=== PATIENT | female | born 1995 | race Caucasian/White ===

== ENCOUNTER 2017-01-15 01:10 | Emergency (ER) | payer MEDICAID ==
[~2017-01-15] VITALS: Ht 172.7 cm; Wt 80.9 kg
[~2017-01-15 01:10] MED LIST: AMOXIL500 M1 PO; BACTRIM DS 8001 TAB PO; BACTROBAN CR, 115 GM EX; BACTROBAN2% TP; CONCERTA36 MG; CONCERTA36 MG PO; DICLOFENAC 50MG50 MG PO; KEFLEX 250250 MG/5 M PO; KEFLEX 500MG.500 MG PO; KEFLEX500 M1 PO; NAPROSYN 500MG500 MG PO; PRENATAL PLUS1 TA1 PO; PRILOSEC40 MG PO; PROVENTIL0.09 MG/A1 INH; SEPTRA DS 800 M1 TAB PO; TESSALON PERLE100 MG PO; TYLENOL W/CODEI1 TAB PO
[2017-01-15] MEDS ORDERED: NOMEDS XX (01:32)
--- NOTE | 2017-01-15 02:08 | Emergency Room Report ---
History of Present Illness Time Seen by MD Munoz Presenting Problem in Triage Pt arrived:Walked Presenting Problem:COUGH WITH CONGESTION, EAR ACHE IN BOTH EARS, INTERMITTENTLY. 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 N Clinical Suspician of Infection? N Mental Status: 1 - Regular (Normal Baseline) Sepsis Risk:Possible Sepsis Risk Have you (or family members/close friends) recently traveled outside the [place]? N If Yes, where/when: Have you had exposure to infectious disease within the past month? N TB? Other? Specify: Comment Mother is being seen along with her 7-month-old child both of them having upper respiratory infection symptoms. Both of them got sick 2 days ago. Mother complains of sinus drainage and congestion, earaches, cough. She says the day before yesterday she lifted her throat and there were "pus spots", but when she looked at it today they were gone. No fever. She says "it's more sinus". Her child has otitis media on exam. ALLERGIES Coded Allergies: No Known Drug Allergies (NKDA) (05/23/16) Home Medications Reported Medications No Home Medications (NO HOME MEDICATIONS) 1 EACH XX ONCE MULTIVIT-MIN W/FE-FA ( Multivitamin Tablet) 1 TAB PO DAILY History Medical History General CAD? No Angina: No [place]: No Hypertension? No Hyperlipidemia? No CHF? No COPD? No Asthma? Yes Anemia? No Hernia? No Thyroid Problems? No Hypothyroidism? No CVA? No Seizures? No Diabetes? No End Stage Renal Disease? No UTI? No Stones? No GB Disease: No Nephritic Syndrome? No Asplenia? No Hepatitis? No Sickle Cell Disease? No Arthritis? No Cataracts? No Glaucoma? No MRSA? Yes TB? No Cancer? 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 Respiratory cough Physical Exam Vital Signs Vital Signs Date Time Temp Pulse Resp B/P Pulse O2 O2 Flow FiO2 Ox Delivery Rate 01/15 0124 97.9 100 20 154/79 98 General Appearance no apparent distress Eye Exam - bilateral eye normal exam, bilateral eye PERRL, bilateral eye EOMI Ear, Nose, Throat tympanic membranes normal., throat normal Neck normal inspection, non-tender, supple, full range of motion Respiratory Status Yes: trachea midline, chest symmetrical, productive cough. No: respiratory distress. Lung Sounds bilateral: normal breath sounds, lungs clear. Cardiovascular normal exam, regular rate/rhythm, no peripheral edema, no gallop, no JVD, no murmur, no rub, normal peripheral pulses Extremities normal inspection Neurologic alert, oriented x 3 Mental status normal mood/affect Skin intact, normal color, warm/dry Lymphatic no adenopathy Medical Decision Making LABS/Meds/Orders Pt receiving controlled substance in ED? No Results/Orders Current Medication Orders Sig/Neeru Start time Last Medication Dose Route Stop Time Status Admin Amoxicillin 500 MG ONCE ONE 01/15 245 DC 01/15 PO 01/15 246 0241 Amoxicillin 0 .STK-MED ONE 01/15 241 DC PO Departure Departure Disposition DC Home or Self Care(routine) Clinical Impression Primary Impression: Upper respiratory infection Qualifiers: URI type: unspecified viral URI Qualified Code: J06.9 - Acute upper respiratory infection, unspecified Secondary Impressions: Otalgia Qualifiers: Laterality: bilateral Qualified Code: H92.03 - Otalgia, bilateral Condition STABLE Referrals Isis DELGADO,Xavi Beaver (Family) Patient Instructions DI for Viral Upper Respiratory Infection -- Adult Additional Instructions Additional instructions for UPPER RESPIRATORY INFECTION: See your physician as soon as possible for further evaluation. Return immediately if you have an uncontrollable fever greater than 104 degrees, difficulty breathing or shortness of breath, persistent vomiting, or inability to swallow. Prescriptions Current Visit Scripts Amoxicillin (Amoxicillin 500MG) 500 MG PO TID #30 CAP ED Critical Care Critical Care No at 0309
--- OUTSIDE RECORDS SUMMARY | 2017-01-15 02:10 | External Medical Summary Rpt | CCD ---
Author Author , MARIA D Organization MARIA D Address Unknown Phone Care Team Providers Care Leather Tooler Name Role Phone [facility] Unavailable Unavailable LABORATORIES, [facility] Unavailable Unavailable [facility] [place], [facility] OF [facility], Unavailable Unavailable [facility] Unavailable [place]available [place], [facility] [place] [facility] Un[place] [facility] [place] [facility] Unavailable Unavailable INC, [facility] Unavailable Unavailable HOSPITAL P, [facility], Unavailable Unavailable [facility] PRESLEY FARMERU, PRESLEY DICKERSON Unavailable Unavailable [facility], Unavailable [facility]available [facility], [facility] PRICE, TRUE Estrada, PRICE, Unavailable Unavailable TRUE Estrada Sien [facility] Unavailable Unavailable DEPARTMENT, [facility] MILANA GABY DO, Unavailable Unavailable [employer] DO [facility] Unavailable Unavailable #[id number], [facility] Purpose Continuity of Care Document - 06-05-2007 through 2016 Problems Code Diagnosis DOS Provider Status Z392 ENCOUNTER 07-10-2016 [facility] FOLLOW-UP S O621 SECONDARY 05-23-2016 [facility] UTERINE ANESTH OF INERTIA THE JUDITH Z370 SINGLE LIVE 05-23-2016 [facility] ANESTH OF THE BLUE O1404 MILD TO 05-22-2016 [facility] PRE-ECLAMPS INC IA COMP CHILDBIRTH O1494 UNSPECIFIED 05-22-2016 [facility] PRE-ECLAMPS GROUP IA COMP CHILDBIRTH O163 UNSPECIFIED 05-22-2016 [facility] MATERNAL PHYSICIANS HYPERTENSIO GROUP N 3RD TRIMESTER O339 MATERNAL 05-22-2016 [facility] CARE FOR PHYSICIANS DISPROPORTI GROUP ON UNSPECIFIED O610 FAILED 05-22-2016 [facility] INDUCTION INC OF LABOR O76 ABNORMALITY 05-22-2016 [facility] IN [facility] HRT RATE INC RHYTHM COMP L & D O770 LABOR & 05-22-2016 [facility] DELIV COMP [facility] BY MECONIUM INC IN AMNIOTIC FLUID [id number] 37 WEEKS 05-22-2016 [facility] GESTATION [facility] OF INC O133 GESTATIONAL 05-19-2016 [facility] HTN W/O PHYSICIANS SIG GROUP PROTEINURIA THIRD TRI Z3480 ENC 05-08-2016 [facility] SUPERVISION PHYSICIANS OT NORMAL GROUP PREG UNS TRIMESTER Z36 ENCOUNTER 05-08-2016 [facility] FOR PHYSICIANS GROUP SCREENING OF MOTHER N390 URINARY 04-17-2016 [facility] TRACT PHYSICIANS INFECTION GROUP SITE NOT SPECIFIED M545 LOW BACK 04-11-2016 [facility] PAIN [facility] INC O2693 04-11-2016 [facility]ATED [facility] CONDITIONS INC UNS 3RD TRIMESTER O4703 FALSE LABOR 04-11-2016 [facility] BEFORE 37 PHYSICIANS CMPLETE GROUP WEEKS GEST 3RD TRI R102 PELVIC AND 04-11-2016 [facility] PERINEAL [facility] PAIN INC [id number] 31 WEEKS 04-11-2016 [facility]ATION [facility] OF INC O132 GESTATIONAL 04-10-2016 [facility] HTN W/O PHYSICIANS SIG GROUP PROTEINURIA SECOND TRI Z3483 ENC 04-03-2016 [facility] SUPERVISION PHYSICIANS OTH NORMAL GROUP 3 TRIMESTER L0212 FURUNCLE OF 02-29-2016 [facility] NECK [facility] INC L0292 FURUNCLE 02-29-2016 [facility] UNSPECIFIED [facility] PLLC R599 ENLARGED 02-29-2016 [facility] LYMPH NODES [facility] UNSPECIFIED Z131 ENCOUNTER 02-29-2016 [facility] FOR [facility] SCREENING INC FOR DIABETES MELLITUS I31357 ENCOUNTER 01-24-2016 [facility] STEEL BUFFER EXAM PHYSICIANS GENERAL RTN GROUP W/O ABNORMAL FIND Z048 ENCOUNTER 01-24-2016 [facility] EXAM & [facility] OBSERVATION INC OTHER SPEC REASONS Z3402 ENCOUNTER 01-24-2016 [facility] SUPRVISN PHYSICIANS NORMAL GROUP FIRST PREG 2 TRIMESTER J209 ACUTE 11-30-2015 [facility] BRONCHITIS PHYSICIANS UNSPECIFIED GROUP L853 XEROSIS 11-30-2015 [facility] CUTIS PHYSICIANS GROUP 68607 ASTHMA, 07-28-2014 [facility]PEC[facility]IED [facility] , INC UNSPECIFIED STATUS 7802 SYNCOPE AND 07-28-2014 [place] JAYLA COLLAPSE 88572 OTHER 07-28-2014 [facility] CONVULSIONS [facility] INC 23551 METHICILLIN 02-24-2014 [facility] RESISTANT [facility] P CUS AUREUS 6822 CELLULITIS 02-24-2014 [facility] AND ABSCESS [facility] P [phone] 03-18-2013 [facility] ASTHMA, [facility] UNSPECIFIED Hospital 682.2 682.2 03-18-2013 [facility] CELLULITIS [facility] 89560 CHEST PAIN 04-26-2012 [facility]NSPECIFIED [facility] INC 06471 REGULAR 10-24-2010 [facility] 3670 HYPERMETROP 03-01-2009 [place] IA OPTICAL V069 NEED PROPH 09-15-2008 [facility]/CO VACCINATION HEALTH W/UNSPEC CENTRAL COMB BANK ACCT VACCINE 462 ACUTE 05-10-2008 [facility] PHARYNGITIS [facility] 436 ACUTE BUT 05-08-2008 [facility] ILL-DEFINED [facility] CEREBROVASC ULAR DISEASE L02.92 FURUNCLE, UNSPECIFIED 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 21 00 EA Ac LA 37 -0 -[address] ti NE 83 3- 5- 0 00 SI ve 34 20 20 48 DE PA 05 17 17 30 TC 3 89 PH H AR MA CY OF CY NT HI AN A IN SOSA 00 07 08 3. 21 00 EA Ac LA 37 -2 -[address] ti NE 83 1- 8- 0 00 SI ve 34 20 20 48 DE PA 05 17 17 30 TC 3 89 PH H AR MA CY OF CY NT HI AN A IN SOSA 00 05 06 3. 28 00 EA Ac LA 37 -3 -[address] ti NE 83 1- 3- 0 00 SI ve 34 20 20 48 DE PA 05 17 17 30 TC 3 89 PH H AR MA CY OF CY NT HI AN A IN SOSA 00 05 05 3. 28 00 EA Ac LA 37 -0 -[address] ti NE 83 2- 6- 0 00 SI ve 34 20 20 48 DE PA 05 17 17 30 TC 3 89 PH H AR MA CY OF CY NT HI AN A IN C SOSA 00 04 05 3. 28 00 EA Ac LA 37 -1 -[address] ti NE 83 0- 5- 0 00 SI ve 34 20 20 48 DE PA 05 17 17 30 TC 3 89 PH H AR MA CY OF CY NT HI AN A IN C NI 16 01 02 20 10 00 EA Ac TR 71 -3 -[address] ti OF 40 1- 4- 00 00 SI ve UR 43 20 20 47 DE AN 90 17 17 44 TO 1 56 PH IN AR MA MO CY NO -M OF CR CY NT 10 HI 0 AN MG A IN C CE 65 12 01 40 10 00 EA Ac PH 86 -2 -[address] ti AL 20 0- 3- 00 00 SI ve EX 01 20 20 46 DE IN 90 16 17 96 5 65 PH 50 AR 0 MA MG CY CA OF PS CY UL NT E HI AN A IN C MU 68 12 01 22 7 00 EA Ac PI 46 -2 -[address] ti RO 20 0- 3- 00 00 SI ve CI 18 20 20 46 DE N 02 16 17 96 2% 2 66 PH AR OI MA NT CY ME NT OF CY NT HI AN A IN C CO 50 10 10 [address] Ac NC 45 -1 -[address] 58 EP ti ER 80 9- 9- 00 SI 32 HE ve TA 58 20 20 DE NS 60 11 11 ER 1 PH DO AR N 36 MA R CY MG OF TA BL CY ET NT HI AN A CO 50 09 09 [address] Ac NC 45 -1 -[address] 15 EP ti ER 80 4- 9- 00 SI 67 HE ve TA 58 20 20 DE NS 60 11 11 ER 1 PH DO AR N 36 MA R CY MG OF TA BL CY ET NT HI AN A CO 50 08 08 [address] Ac NC 45 -0 -[address] 57 EP ti ER 80 8- 8- 00 SI 55 HE ve TA 58 20 20 DE NS 60 11 11 ER 1 PH DO AR N 36 MA R CY MG OF TA BL CY ET NT HI AN A MISHRA 53 08 08 0 20 10 EA 23 GA Ac LF 74 -0 -[address] 56 IN ti AM 60 6- 6- 00 SI 21 EY ve ET 27 20 20 DE HO 20 11 11 MA XA 5 PH CH ZO AR AE LE MA L -T CY S MP OF DS CY TA NT BL HI ET AN A CO 50 07 07 0 [address] Ac NC 45 -0 -[address] 21 EP ti ER 80 7- 7- 00 SI 71 HE ve TA 58 20 20 DE NS 60 11 11 ER 1 PH DO AR N 36 MA R CY MG OF TA BL CY ET NT HI AN A CO 50 06 06 0 [address] Ac NC 45 -0 -[address] 86 EP ti ER 80 8- 8- 00 SI 64 HE ve TA 58 20 20 DE NS 60 11 11 ER 1 PH DO AR N 36 MA R CY MG OF TA BL CY ET NT HI AN A CO 50 04 04 0 [address] Ac NC 45 -2 -[address] 31 EP ti ER 80 9- 9- 00 SI 42 HE ve TA 58 20 20 DE NS 60 11 11 ER 1 PH DO AR N 36 MA R CY MG OF TA BL CY ET NT HI AN A AZ 00 04 04 0 6. [address] Ac IT 09 -0 -[address] 01 EP ti HR 37 6- 6- 0 SI 92 HE ve OM 14 20 20 DE NS YC 61 11 11 IN 8 PH DO AR N 25 MA R 0 CY MG OF TA BL CY ET NT HI AN A LO 45 04 04 0 [address] Ac RA 80 -0 -[address] 01 EP ti TA 20 6- 6- 00 SI 93 HE ve DI 65 20 20 DE NS NE 08 11 11 7 PH DO 10 AR N MA R MG CY TA OF BL ET CY NT HI AN A CO 50 03 03 0 [address] Ac NC 45 -2 -[address] 81 EP ti ER 80 3- 3- 00 SI 92 HE ve TA 58 20 20 DE NS 60 11 11 ER 1 PH DO AR N 36 MA R CY MG OF TA BL CY ET NT HI AN A AZ 00 02 02 0 6. [address] Ac IT 09 -1 -[address] 24 EP ti HR 37 5- 5- 0 SI 94 HE ve OM 14 20 20 DE NS YC 61 11 11 IN 8 PH DO AR N 25 MA R 0 CY MG OF TA BL CY ET NT HI AN A CO 50 02 02 0 [address] Ac NC 45 -1 -[address] 23 EP ti ER 80 4- 4- 00 SI 12 HE ve TA 58 20 20 DE NS 60 11 11 ER 1 PH DO AR N 36 MA R CY MG OF TA BL CY ET NT HI AN A CO 50 01 01 0 [address] Ac NC 45 -0 -[address] 63 EP ti ER 80 3- 3- 00 SI 76 HE ve TA 58 20 20 DE NS 60 11 11 ER 1 PH DO AR N 36 MA R CY MG OF TA BL CY ET NT HI AN A CO 50 10 10 0 [address] Ac NC 45 -1 -[address] 49 EP ti ER 80 1- 1- 00 SI 61 HE ve TA 58 20 20 DE NS 60 10 10 ER 1 PH DO AR N 36 MA R CY MG OF TA BL CY ET NT HI AN A CE 00 10 10 0 20 7 EA 19 GA Ac PH [address] 49 IN ti AL 34 SI 60 EY ve EX 17 20 20 0 DE IN 77 10 10 MA 4 PH CH 25 AR AE 0 MA L MG CY S /5 OF ML CY MISHRA NT SP HI AN A CO 50 09 09 [address] Ac NC 45 -0 -[address] 95 EP ti ER 80 1- 00 SI 18 HE ve TA 58 20 20 DE NS 60 10 10 ER 1 PH DO AR N 36 MA R CY MG OF TA BL CY ET NT HI AN A LO 45 04 07 1 [address] Ac RA 80 -1 -[address] 18 EP ti TA 20 4- 1- 00 SI 74 HE ve DI 65 20 20 DE NS NE 08 10 10 7 PH DO 10 AR N MA R MG CY TA OF BL ET CY NT HI AN A CO 50 07 07 0 [address] Ac NC 45 -2 -[address] 42 EP ti ER 80 1- 1- 00 SI 94 HE ve TA 58 20 20 DE NS 60 10 10 ER 1 PH DO AR N 36 MA R CY MG OF TA BL CY ET NT HI AN A AZ 00 04 04 0 6. [address] Ac IT 09 -[address] 18 EP ti HR 37 4- 4- 0 SI 73 HE ve OM 14 20 20 DE NS YC 61 10 10 IN 8 PH DO AR N 25 MA R 0 CY MG OF TA BL CY ET NT HI AN A LO 45 04 04 1 [address] Ac RA 80 -1 -[address] 18 EP ti TA 20 4- 4- 00 SI 74 HE ve DI 65 20 20 DE NS NE 08 10 10 7 PH DO 10 AR N MA R MG CY TA OF BL ET CY NT HI AN A CO 50 04 04 0 [address] Ac NC 45 -1 -[address] 18 EP ti ER 80 4- 4- 00 SI 75 HE ve TA 58 20 20 DE NS 60 10 10 ER 1 PH DO AR N 36 MA R CY MG OF TA BL CY ET NT HI AN A CE 00 02 02 00 21 7 EA 16 GA Ac PH 09 -1 -[address] 40 IN ti AL 33 7- 6- 00 SI 24 EY ve EX 14 20 20 DE IN 70 10 10 MA 5 PH CH 50 AR AE 0 MA L MG CY S CA OF PS CY UL NT E HI AN A CO 50 12 12 [address] Ac NC 45 -2 -[address] 69 EP ti ER 80 2- 1- 00 SI 74 HE ve TA 58 20 20 DE NS 70 09 09 ER 1 PH DO AR N 54 MA R CY MG OF TA CY BL NT ET HI AN A CO 50 11 12 [address] Ac NC 45 -1 -[address] 18 EP ti ER 80 8- 3- 00 SI 87 HE ve TA 58 20 20 DE NS 70 09 09 ER 1 PH DO AR N 54 MA R CY MG OF TA CY BL NT ET HI AN A AM 00 11 11 00 30 10 EA 15 SO Ac OX 78 -1 -[address] 09 KA ti IC 12 1- 9- 00 SI 14 N ve IL 61 20 20 DE BA LI 30 09 09 BA N 5 PH TU 50 AR ND 0 MA E MG CY O CA OF PS CY UL NT E HI AN A 00 03 03 [address] Ac 47 -0 -[address] 81 EP ti 21 9- 6- 00 SI 75 HE ve 28 20 20 0 DE NS 51 09 09 6 PH DO AR N MA R CY OF CY NT HI AN A AM 00 03 03 00 30 10 WA 70 WI Ac OX 78 -0 -1 .0 L- 10 CK ti IC 12 1- 2- 00 MA 06 ER ve IL 61 20 20 RT 3 LI 33 09 09 JE N 1 PH FF 50 AR RE 0 MA Y MG CY CA #5 PS 91 UL E AC 00 03 03 00 12 3 WA 44 WI Ac ET 09 -0 -1 .0 L- 74 CK ti AM 30 1- 2- 00 MA 76 ER ve IN 15 20 20 RT 8 OP 01 09 09 JE HE 0 PH FF N- AR RE CO MA Y D CY #3 #5 TA 91 BL ET 60 03 10 01 18 6 EA 97 No Ac 25 -1 -[address] 17 t ti 80 1- 3- 00 SI 76 Av ve 23 20 20 0 DE ai 91 08 08 la 6 PH bl AR e MA CY OF CY NT HI AN A 10 10 10 03 30 30 EA 95 No Ac 91 -1 -[address] 17 t ti 40 5- 9- 00 SI 37 Av ve 95 20 20 DE ai 50 07 08 la 1 PH bl AR e MA CY OF CY NT HI AN A OV 51 09 10 00 59 1 EA 99 No Ac ID 67 -2 -[address] 59 t ti E 25 4- 9- 00 SI 80 Av ve 0. 27 20 20 DE ai 5% 60 08 08 la 4 PH bl LO AR e TI MA ON CY OF CY NT HI AN A 10 10 08 02 30 30 EA 95 No Ac 91 -1 -[address] 17 t ti 40 5- 1- 00 SI 37 Av ve 95 20 20 DE ai 50 07 08 la 1 PH bl AR e MA CY OF CY NT HI AN A AD 00 10 08 02 60 30 EA 95 No Ac VA 17 -1 -[address] 17 t ti IR 30 5- 1- 00 SI 34 Av ve 69 20 20 DE ai 25 60 07 08 la 0- 0 PH bl 50 AR e MA DI CY SK US OF CY NT HI AN A NA 00 10 08 02 17 17 EA 95 No Ac SO 08 -1 -[address] 17 t ti NE 51 5- 1- 00 SI 39 Av ve X 28 20 20 DE ai 50 80 07 08 la 1 PH bl MC AR e G MA NA CY SA L OF SP CY RA NT Y HI AN A VE 00 10 08 02 18 18 EA 95 No Ac NT 17 -1 -[address] 17 t ti OL 30 5- 1- 00 SI 40 Av ve IN 68 20 20 DE ai 22 07 08 la HF 0 PH bl A AR e 90 MA CY MC G OF IN CY STEIN NT LE HI R AN A OV 51 02 05 01 59 1 EA 96 No Ac ID 67 -2 -[address] 89 t ti E 25 0- 2- 00 SI 80 Av ve 0. 27 20 20 DE ai 5% 60 08 08 la 4 PH bl LO AR e TI MA ON CY OF CY NT HI AN A 00 03 04 00 10 10 EA 97 No Ac 07 -1 -[address] 17 t ti 46 1- 7- 00 SI 75 Av ve 15 20 20 0 DE ai 11 08 08 la 3 PH bl AR e MA CY OF CY NT HI AN A 60 03 04 00 18 6 EA 97 No Ac 25 -1 -[address] 17 t ti 80 1- 7- 00 SI 76 Av ve 23 20 20 0 DE ai 91 08 08 la 6 PH bl AR e MA CY OF CY NT HI AN A NA 00 03 04 00 17 25 EA 97 No Ac SO 08 -1 -[address] 17 t ti NE 51 1- 7- 00 SI 77 Av ve X 28 20 20 DE ai 50 80 08 08 la 1 PH bl MC AR e G MA NA CY SA L OF SP CY RA NT Y HI AN A 17 02 03 00 30 30 EA 96 No Ac 31 -2 -[address] 89 t ti 45 0- 6- 00 SI 79 Av ve 85 20 20 DE ai 20 08 08 la 2 PH bl AR e MA CY OF CY NT HI AN A AD 00 10 03 01 60 30 EA 95 No Ac VA 17 -1 -[address] 17 t ti IR 30 5- 6- 00 SI 34 Av ve 69 20 20 DE ai 25 60 07 08 la 0- 0 PH bl 50 AR e MA DI CY SK US OF CY NT HI AN A VE 00 10 03 01 18 18 EA 95 No Ac NT 17 -1 -[address] 17 t ti OL 30 5- 6- 00 SI 40 Av ve IN 68 20 20 DE ai 22 07 08 la HF 0 PH bl A AR e 90 MA CY MC G OF IN CY STEIN NT LE HI R AN A OV 51 02 03 00 59 1 EA 96 No Ac ID 67 -2 -[address] 89 t ti E 25 0- 6- 00 SI 80 Av ve 0. 27 20 20 DE ai 5% 60 08 08 la 4 PH bl LO AR e TI MA ON CY OF CY NT HI AN A NA 00 10 03 01 17 17 EA 95 No Ac SO 08 -1 -[address] 17 t ti NE 51 5- 6- 00 SI 39 Av ve X 28 20 20 DE ai 50 80 07 08 la 1 PH bl MC AR e G MA NA CY SA L OF SP CY RA NT Y HI AN A 00 10 03 01 30 30 EA 95 No Ac 00 -1 -[address] 17 t ti 60 5- 6- 00 SI 38 Av ve 11 20 20 DE ai 73 07 08 la 1 PH bl AR e MA CY OF CY NT HI AN A 10 10 03 01 30 30 EA 95 No Ac 91 -1 -[address] 17 t ti 40 5- 6- 00 SI 37 Av ve 95 20 20 DE ai 50 07 08 la 1 PH bl AR e MA CY OF CY NT HI AN A Vital Signs 03-18-2013 19:12 Name Value Interpretat Reference Comment ion Range Body 98.6 [degF] Temperature BP 67 mm[Hg] Diastolic BP Systolic 130 mm[Hg] Heart 99 /min Rate/Pulse O2% 98 % Respiratory 16 /min Rate Procedures Procedure DOS Code Location Performer Comment EXTRACTIO [id number] [facility] [place] [facility] PRODUCT 7 [facility] CONCEPTIO N LOW CERVICAL OP Encounters Encounter Start End Date Code Location Performer Type Date [facility]OSPITAL [facility] 7 [facility] 6 [facility] 6 [facility] NICOLE GRIFFIN DO (ER) 4 19:12 4 19:17 [facility] 4 [facility] 3 [facility] 9 9 [facility]
--- OUTSIDE RECORDS SUMMARY | 2017-01-15 02:10 | External Medical Summary Rpt | CCD ---
Author Author , MARIA D Organization MARIA D Address Unknown Phone Care Team Providers Care Senior Software Tester Name Role Phone [facility] Unavailable Unavailable LABORATORIES, [facility] COMMUNITY ANESTH OF Unavailable Unavailable [facility] [place], [facility] ANESTH OF THE BLUE [facility], Unavailable Unavailable [facility] Unavailable [place]available [place], [facility] [place] [facility]available Un[place] [facility] [place] [facility] Unavailable Unavailable INC, [facility] Unavailable [facility]available HOSPITAL P, [facility], [facility]available Unavailable [facility] PRESLEY FARMERU, PRESLEY DICKERSON Unavailable Unavailable [facility], Unavailable Unavailable PLLC, [facility] PRICE, TRUE Estrada, PRICE, Unavailable Unavailable TRUE Estrada [facility] Unavailable Unavailable DEPARTMENT, [facility] MILANA GABY DO, Unavailable Unavailable [employer] DO [facility] Unavailable Unavailable #591, [facility] #591 Purpose Continuity of Care Document - 06-05-2007 through 2016 Problems Code Diagnosis DOS Provider Status Z392 ENCOUNTER 07-10-2016 [facility]OUTINE RE[facility] LABORATORIE FOLLOW-UP S O621 SECONDARY 05-23-2016 COMMUNITY UTERINE ANESTH OF INERTIA THE JUDITH Z370 SINGLE LIVE 05-23-2016 COMMUNITY ANESTH OF THE BLUE O1404 MILD TO 05-22-2016 [facility] PRE-ECLAMPS INC IA COMP CHILDBIRTH O1494 UNSPECIFIED 05-22-2016 [facility] PHYSICIANS PRE-ECLAMPS GROUP IA COMP CHILDBIRTH O163 UNSPECIFIED 05-22-2016 [facility] MATERNAL PHYSICIANS HYPERTENSIO GROUP N 3RD TRIMESTER O339 MATERNAL 05-22-2016 [facility] CARE FOR PHYSICIANS DISPROPORTI GROUP ON UNSPECIFIED O610 FAILED 05-22-2016 [facility] INDUCTION INC OF LABOR O76 ABNORMALITY 05-22-2016 [place] IN [facility] HRT RATE INC RHYTHM COMP L & D O770 LABOR & 05-22-2016 [place] DELIV COMP [facility] BY MECONIUM INC IN AMNIOTIC FLUID Z3A37 37 WEEKS 05-22-2016 [place] GESTATION [facility] OF INC O133 GESTATIONAL 05-19-2016 [facility] HTN W/O PHYSICIANS SIG GROUP PROTEINURIA THIRD TRI Z3480 ENC 05-08-2016 [facility] SUPERVISION PHYSICIANS OT NORMAL GROUP PREG UNS TRIMESTER Z36 ENCOUNTER 05-08-2016 [facility] FOR PHYSICIANS GROUP SCREENING OF MOTHER N390 URINARY 04-17-2016 [facility] TRACT PHYSICIANS INFECTION GROUP SITE NOT SPECIFIED M545 LOW BACK 04-11-2016 [facility] PAIN [facility] INC O2693 04-11-2016 [facility] RELATED [facility] CONDITIONS INC UNS 3RD TRIMESTER O4703 FALSE LABOR 04-11-2016 [facility] BEFORE 37 PHYSICIANS CMPLETE GROUP WEEKS GEST 3RD TRI R102 PELVIC AND 04-11-2016 [facility] PERINEAL [facility] PAIN INC Z3A31 31 WEEKS 04-11-2016 [facility] GESTATION [facility] OF INC O132 GESTATIONAL 04-10-2016 [facility] HTN W/O PHYSICIANS SIG GROUP PROTEINURIA SECOND TRI Z3483 ENC 04-03-2016 [facility] SUPERVISION PHYSICIANS OTH NORMAL GROUP 3 TRIMESTER L0212 FURUNCLE OF 02-29-2016 [facility] NECK [facility] INC L0292 FURUNCLE 02-29-2016 [facility] UNSPECIFIED [facility]IANS, PLLC R599 ENLARGED 02-29-2016 [facility] LYMPH NODES [facility]YSICIANS, PLLC UNSPECIFIED Z131 ENCOUNTER 02-29-2016 [facility] FOR [facility] SCREENING INC FOR DIABETES MELLITUS S21519 ENCOUNTER 01-24-2016 [facility] SUPERVISOR TRUST ACCOUNTS EXAM PHYSICIANS GENERAL RTN GROUP W/O ABNORMAL FIND Z048 ENCOUNTER 01-24-2016 [place] EXAM & [facility] OBSERVATION INC OTHER SPEC REASONS Z3402 ENCOUNTER 01-24-2016 [facility] SUPRVISN PHYSICIANS NORMAL GROUP FIRST PREG 2 TRIMESTER J209 ACUTE 11-30-2015 [facility] BRONCHITIS PHYSICIANS UNSPECIFIED GROUP L853 XEROSIS 11-30-2015 [facility] CUTIS PHYSICIANS GROUP 91771 ASTHMA, 07-28-2014 [facility]PECIFIED [facility] , INC UNSPECIFIED STATUS 7802 SYNCOPE AND 07-28-2014 [place] JAYLA COLLAPSE 86093 OTHER 07-28-2014 [facility] CONVULSIONS [facility] INC 54585 METHICILLIN 02-24-2014 [place] RESISTANT [facility] P CUS AUREUS 6822 CELLULITIS 02-24-2014 [place] AND ABSCESS [facility] P [phone] 03-18-2013 [place] ASTHMA, [facility] UNSPECIFIED Hospital [phone] 03-18-2013 [place] CELLULITIS [facility] 77608 CHEST PAIN 04-26-2012 [facility] UNSPECIFIED [facility] INC 89303 REGULAR 10-24-2010 [facility] ASTIGMAT[facility] 3670 HYPERMETROP 03-01-2009 [place] OPTICAL V069 NEED PROPH 09-15-2008 [facility] VACCINATION HEALTH W/UNSPEC CENTRAL COMB BANK ACCT VACCINE 462 ACUTE 05-10-2008 [facility] PHARYNGITIS [facility] INC 436 ACUTE BUT 05-08-2008 [place] ILL-DEFINED [facility] CEREBROVASC ULAR DISEASE L02.92 FURUNCLE, [...] 20 20 DE HO 20 11 11 DC XA 5 PH CH ZO AR AE [...] 20 0 DE IN 77 10 10 DC 4 PH CH 25 AR AE 0 [...] 20 20 DE IN 70 10 10 DC 5 PH CH 50 AR AE 0 [...] Procedure DOS Code Location Performer Comment EXTRACTIO [id number] [place] PRODUCT 7 [facility] CON[facility] N LOW CERVICAL OP Encounters Encounter Start End Date Code Location Performer Type Date HOSPITAL [facility] - 7 7 [facility]IENT [facility] - 7 7 [facility] 7 7 [facility] - 6 6 [facility] 6 6 [facility] - 5 5 [facility] - 4 4 [facility] 4 4 [facility] Emergency NICOLE GRIFFIN DO (ER) 4 19:12 4 19:17 [facility] - 4 4 [facility] - 3 3 [facility] - 9 9 [facility] - 9 9 [facility] T
--- OUTSIDE RECORDS SUMMARY | 2017-01-15 02:13 | External Medical Summary Rpt | CCD ---
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 [place] [facility] Unavailable Un[place] [place] [facility] Unavailable Unavailable INC, [facility] Unavailable Unavailable HOSPITAL P, [facility], Unavailable Unavailable [facility] PRESLEY FARMERU, PRESLEY FARMERU Unavailable Unavailable [facility], Unavailable Unavailable PLLC, [facility], [facility] PRICE, TRUE Estrada, PRICE, Unavailable Unavailable TRUE Estrada [employer] [facility] Unavailable Unavailable DEPARTMENT, [employer] Unavailable Unavailable #591, [facility] #591 Purpose Continuity of Care Document - 06-05-2007 through 2016 Problems Code Diagnosis DOS Provider Status Z392 ENCOUNTER 07-10-2016 [facility] FOR ROUTINE REFERNCE LABORATORIE FOLLOW-UP S O621 SECONDARY 05-23-2016 [facility] UTERINE ANESTH OF INERTIA THE BLUE Z370 SINGLE LIVE 05-23-2016 COMMUNITY ANESTH OF THE BLUE O1404 MILD TO 05-22-2016 [facility] PRE-ECLAMPS INC IA COMP CHILDBIRTH O1494 UNSPECIFIED 05-22-2016 [facility] PRE-ECLAMPS GROUP IA COMP CHILDBIRTH O163 UNSPECIFIED 05-22-2016 [facility] MATERNAL PHYSICIANS HYPERTENSIO GROUP N 3RD TRIMESTER O339 MATERNAL 05-22-2016 [facility] DISPROPORTI GROUP ON UNSPECIFIED O610 FAILED 05-22-2016 [facility] INDUCTION INC OF LABOR O76 ABNORMALITY 05-22-2016 [facility] IN [facility] HRT RATE INC RHYTHM COMP L & D O770 LABOR & 05-22-2016 [facility] DELIV COMP [facility] BY MECONIUM INC IN AMNIOTIC FLUID Z3A37 37 WEEKS 05-22-2016 [facility] GESTATION [facility] OF INC O133 GESTATIONAL 05-19-2016 [facility] HTN W/O PHYSICIANS SIG GROUP PROTEINURIA THIRD TRI Z3480 ENC 05-08-2016 [facility] SUPERVISION PHYSICIANS OT NORMAL GROUP PREG UNS TRIMESTER Z36 ENCOUNTER 05-08-2016 [facility] FOR [facility]ANS GROUP SCREENING OF MOTHER N390 URINARY 04-17-2016 [facility] TRACT PHYSICIANS INFECTION GROUP SITE NOT SPECIFIED M545 LOW BACK 04-11-2016 [facility] PAIN [facility] INC O2693 04-11-2016 [facility] RELATED [facility] CONDITIONS INC UNS 3RD TRIMESTER O4703 FALSE LABOR 04-11-2016 [facility] BEFORE 37 PHYSICIANS CMPLETE GROUP WEEKS GEST 3RD TRI R102 PELVIC AND 04-11-2016 [facility] PERINEAL [facility] PAIN INC Z3A31 31 WEEKS 04-11-2016 [facility] OF INC O132 GESTATIONAL 04-10-2016 [facility] HTN W/O PHYSICIANS SIG GROUP PROTEINURIA SECOND TRI Z3483 ENC 04-03-2016 [facility] SUPERVISION PHYSICIANS OTH NORMAL GROUP 3 TRIMESTER L0212 FURUNCLE OF 02-29-2016 [facility] NECK [facility] INC L0292 FURUNCLE 02-29-2016 [facility] UNSPECIFIED [facility]ICIANS, PLLC R599 ENLARGED 02-29-2016 [facility] LYMPH NODES [facility]YSICIANS, PLLC UNSPECIFIED Z131 ENCOUNTER 02-29-2016 [facility] SCREENING INC FOR DIABETES MELLITUS J38488 ENCOUNTER 01-24-2016 [facility] ANALYTICS LEAD EXAM PHYSICIANS GENERAL RTN GROUP W/O ABNORMAL FIND Z048 ENCOUNTER 01-24-2016 [facility] OBSERVATION INC OTHER SPEC REASONS Z3402 ENCOUNTER 01-24-2016 [facility] SUPRVISN PHYSICIANS NORMAL GROUP FIRST PREG 2 TRIMESTER J209 ACUTE 11-30-2015 [facility] BRONCHITIS PHYSICIANS UNSPECIFIED GROUP L853 XEROSIS 11-30-2015 [facility] CUTIS PHYSICIANS GROUP 07974 ASTHMA, 07-28-2014 [facility]PEC[facility] , INC UNSPECIFIED STATUS 7802 SYNCOPE AND 07-28-2014 [place] JAYLA COLLAPSE 77926 OTHER 07-28-2014 [facility] CONVULSIONS [facility] INC 17527 METHICILLIN 02-24-2014 [facility] P CUS A[facility] 6822 CELLULITIS 02-24-2014 [facility] AND ABSCESS [facility] P 19618 CHEST PAIN 04-26-2012 [facility]NSPECIFIED [facility] INC 62789 REGULAR 10-24-2010 [facility] 3670 HYPERMETROP 03-01-2009 JOAQU[facility] THOMPSON OPTICAL V069 NEED PROPH 09-15-2008 [facility]/CO VACCINATION HEALTH W/UNSPEC CENTRAL COMB BANK ACCT VACCINE 462 ACUTE 05-10-2008 [facility]NGITIS [facility] INC 436 ACUTE BUT 05-08-2008 [facility] ILL-DEFINED [facility] INC CEREBROVASC ULAR DISEASE Medications Na ND Rx Da Fi Fi [...] NT HI AN A IN SOSA 00 04 05 3. 28 00 EA Ac LA 37 -1 -[address] ti NE 83 0- 5- 0 00 SI ve 34 20 20 48 DE PA 05 17 17 30 TC 3 89 PH H AR MA CY OF CY NT HI AN A IN NI 16 01 02 20 10 00 EA Ac TR 71 -3 -[address] ti OF 40 1- 4- 00 00 SI ve UR 43 20 20 47 DE AN 90 17 17 44 TO 1 56 PH IN AR MA MO CY NO -M OF CR CY NT 10 HI 0 AN MG A IN CE 65 12 01 40 10 00 [...] 20 20 DE HO 20 11 11 NM XA 5 PH CH ZO AR AE [...] BL ET CY NT HI AN A AZ 00 04 [...] ET NT HI AN A CO 50 03 [...] 7 EA 19 GA Ac PH 09 -1 -[address] 49 IN ti AL 34 1- 1- 00 SI 60 EY ve EX 17 20 20 0 DE IN 77 10 10 NM 4 PH CH 25 AR AE 0 MA L MG CY S /5 OF ML CY MISHRA NT SP HI AN A CO 50 09 09 [address] Ac NC 45 -0 -[address] 95 EP ti ER 80 1- 1- 00 SI 18 HE ve TA [...] EA 17 ST Ac IT 09 -1 -[address] 18 EP ti HR [...] 20 20 DE IN 70 10 10 NM 5 PH CH 50 AR AE 0 [...] .0 ST 09 KA ti IC 12 1 9 00 SI 14 N ve IL 61 20 20 DE BA LI 30 09 09 BA N 5 PH TU 50 AR ND 0 MA E MG CY O CA OF PS CY UL NT E HI AN A 00 03 03 [address] Ac 47 -0 -[address] 81 EP ti 21 9- 6 00 SI 75 HE ve 28 20 [...] STEIN NT LE HI R AN A 10 10 08 02 30 30 EA 95 No Ac 91 -1 -[address] 17 t ti 40 5- 1- 00 SI 37 Av ve 95 20 20 DE ai 50 07 08 la 1 PH bl AR e MA CY OF CY NT HI AN A OV 51 02 05 01 [...] RA NT Y HI AN A 00 03 04 00 [...] STEIN NT LE HI R AN A 10 10 03 01 30 30 EA 95 No Ac 91 -1 -[address] 17 t ti 40 5- 6- 00 SI 37 Av ve 95 20 20 DE ai 50 07 08 la 1 PH bl AR e MA CY OF CY NT HI AN A 17 02 03 00 30 30 EA 96 No Ac 31 -2 -[address] 89 t ti 45 0- 6- 00 SI 79 Av ve 85 20 20 DE ai 20 08 08 la 2 PH bl AR e MA CY OF CY NT HI AN A OV 51 02 03 00 59 1 EA 96 No Ac ID 67 -2 -[address] 89 t ti E 25 0- 6- 00 SI 80 Av ve 0. 27 20 20 DE ai 5% 60 08 08 la 4 PH bl LO AR e TI MA ON CY OF CY NT HI AN A Procedures Procedure DOS Code Location Performer Comment EXTRACTIO [id number] [facility] [place] [facility] PRODUCT 7 [facility] OF INC INC CONCEPTIO N LOW CERVICAL OP Encounters Encounter Start End Date Code Location Performer Type Date HOSPITAL [facility] - 7 7 [facility] - 7 7 [facility] 7 7 [facility] - 6 6 [facility] - 6 6 [facility] - 5 5 [facility] - 4 4 [facility] - 4 4 [facility] - 4 4 [facility] - 3 3 [facility] - 9 9 [facility] - 9 9 [facility]
--- OUTSIDE RECORDS SUMMARY | 2017-01-15 02:13 | External Medical Summary Rpt | CCD ---
Author Author , MARIA D KILLIAN Address Unknown Phone [email or web address] Care Team Providers Care Nurse Special Name Role Phone [facility] Unavailable Unavailable LABORATORIES, [facility] COMMUNITY ANESTH OF Unavailable Unavailable [facility], [facility] ANESTH OF THE BLUE [facility], [facility]available Unavailable [facility] Unavailable Unavailable [place], [facility] [place] [facility] Unavailable Unavailable [place], [facility] [place] [facility] Unavailable Unavailable INC, [facility] Unavailable Unavailable HOSPITAL P, [facility], Unavailable Unavailable [facility] PRESLEY FARMERU, PRESLEY FARMERU Unavailable Unavailable [facility], Unavailable Unavailable PLLC, [facility], [facility] PRICE, TRUE Estrada, PRICE, Unavailable Unavailable TRUE Estrada zoidu [facility] Unavailable Unavailable DEPARTMENT, [facility] Unavailable Unavailable #591, [facility] #591 Purpose Continuity of Care Document - 06-05-2007 through 2016 Problems Code Diagnosis DOS Provider Status Z392 ENCOUNTER 07-10-2016 [facility]IO FOR ROUTINE REFERNCE LABORATORIE FOLLOW-UP S O621 SECONDARY 05-23-2016 [facility] UTERINE ANESTH OF INERTIA THE BLUE Z370 SINGLE LIVE 05-23-2016 COMMUNITY ANESTH OF THE BLUE O1404 MILD TO 05-22-2016 [facility] PRE-ECLAMPS INC IA COMP CHILDBIRTH O1494 UNSPECIFIED 05-22-2016 [facility] PHYSICIANS PRE-ECLAMPS GROUP IA COMP CHILDBIRTH O163 UNSPECIFIED 05-22-2016 [facility] MATERNAL PHYSICIANS HYPERTENSIO GROUP N 3RD TRIMESTER O339 MATERNAL 05-22-2016 [facility] CARE FOR PHYSICIANS DISPROPORTI GROUP ON UNSPECIFIED O610 FAILED 05-22-2016 [facility] INDUCTION INC OF LABOR O76 ABNORMALITY 05-22-2016 [facility] HRT RATE INC RHYTHM COMP L & D O770 LABOR & 05-22-2016 [facility] DELIV COMP [facility] BY MECONIUM INC IN AMNIOTIC FLUID Z3A37 37 WEEKS 05-22-2016 [facility] GESTATION [facility] OF INC O133 GESTATIONAL 05-19-2016 [facility] HTN W/O PHYSICIANS SIG GROUP PROTEINURIA THIRD TRI Z3480 ENC 05-08-2016 [facility] SUPERVISION PHYSICIANS OT NORMAL GROUP PREG UNS TRIMESTER Z36 ENCOUNTER 05-08-2016 [facility] FOR PHYSICIANS GROUP SCREENING OF MOTHER N390 URINARY 04-17-2016 [facility] TRACT PHYSICIANS INFECTION GROUP SITE NOT SPECIFIED M545 LOW BACK 04-11-2016 [facility] INC O2693 04-11-2016 [facility]ATED [facility] CONDITIONS INC UNS 3RD TRIMESTER O4703 FALSE LABOR 04-11-2016 [facility] BEFORE 37 PHYSICIANS CMPLETE GROUP WEEKS GEST 3RD TRI R102 PELVIC AND 04-11-2016 [facility] PERINEAL [facility] PAIN INC Z3A31 31 WEEKS 04-11-2016 [facility]ATION [facility] OF INC O132 GESTATIONAL 04-10-2016 [facility] HTN W/O PHYSICIANS SIG GROUP PROTEINURIA SECOND TRI Z3483 ENC 04-03-2016 [facility] SUPERVISION PHYSICIANS OTH NORMAL GROUP 3 TRIMESTER L0212 FURUNCLE OF 02-29-2016 [facility]K [facility] INC L0292 FURUNCLE 02-29-2016 [facility] UNSPECIFIED [facility]YSICIANS, PLLC R599 ENLARGED 02-29-2016 [facility] LYMPH NODES [facility], PLLC UNSPECIFIED Z131 ENCOUNTER 02-29-2016 [facility] [facility] SCREENING INC FOR DIABETES MELLITUS X90861 ENCOUNTER 01-24-2016 [facility] RN NEONATAL ICU EXAM PHYSICIANS GENERAL RTN GROUP W/O ABNORMAL FIND Z048 ENCOUNTER 01-24-2016 [facility] OBSERVATION INC OTHER SPEC REASONS Z3402 ENCOUNTER 01-24-2016 [facility] SUPRVISN PHYSICIANS NORMAL GROUP FIRST PREG 2 TRIMESTER J209 ACUTE 11-30-2015 [facility] BRONCHITIS PHYSICIANS UNSPECIFIED GROUP L853 XEROSIS 11-30-2015 [facility] CUTIS PHYSICIANS GROUP 43258 ASTHMA, 07-28-2014 [facility] , INC UNSPECIFIED STATUS 7802 SYNCOPE AND 07-28-2014 [place] JAYLA COLLAPSE 82443 OTHER 07-28-2014 [facility] CONVULSIONS [facility] INC 00111 METHICILLIN 02-24-2014 [facility] P CUS AUREUS 6822 CELLULITIS 02-24-2014 [facility] AND ABSCESS [facility] P 89547 CHEST PAIN 04-26-2012 [facility]NSPECIF[facility] INC 82837 REGULAR 10-24-2010 [facility] ASTIGMATISM [facility] 3670 HYPERMETROP [...] 20 20 DE HO 20 11 11 OH XA 5 PH CH ZO AR AE [...] 20 0 DE IN 77 10 10 OH 4 PH CH 25 AR AE 0 [...] 20 20 DE IN 70 10 10 OH 5 PH CH 50 AR AE 0 [...] Procedure DOS Code Location Performer Comment EXTRACTIO [id number] [facility] [place] PRODUCT 7 [facility] OF INC INC CONCEPTIO N LOW CERVICAL OP Encounters Encounter Start End Date Code Location Performer Type Date HOSPITAL [facility] - 7 7 [facility]PATIENT [facility] - 7 7 [facility] - 7 7 [facility] - 6 6 [facility] - 6 6 [facility] - 5 5 [facility]OS - 4 4 [facility] - 4 4 [facility] AMOS - 4 4 [facility] - 3 3 [facility] - 9 9 [facility] AMOS - 9 9 [facility]
--- OUTSIDE RECORDS SUMMARY | 2017-01-15 02:14 | External Medical Summary Rpt | CCD ---
Author Author , MARIA D Pham MARIA D Address Unknown Phone [email or web address] Immunization Name Date Rout CVX Reac Dose Comm Prov Is Faci e tion ent ider Refu lity Give sed n Tdap 05-1 115 0.50 Hist JUNIE No H201 , 7-20 mL oric PEDRO Adso 17 al R rbed Info DARRYL rmat SON ion - Sour ce Unsp ecif ied Tdap 07-0 115 999 Hist H201 No H201 , 7-20 oric Adso 09 al rbed Info rmat ion - Sour ce Unsp ecif ied Vari 10-0 21 999 Hist H201 No H201 cell 5-20 oric a 01 al Info rmat ion - Sour ce Unsp ecif ied DTaP 09-1 107 999 Hist H201 No H201 , UF 3-20 oric 00 al Info rmat ion - Sour ce Unsp ecif ied Rios 09-1 10 999 Hist H201 No H201 o-IP 3-20 oric V 00 al Info rmat ion - Sour ce Unsp ecif ied MMR 09-1 3 999 Hist H201 No H201 3-20 oric 00 al Info rmat ion - Sour ce Unsp ecif ied DTP- 06-1 22 999 Hist H201 No H201 Hib 6-19 oric 97 al Info rmat ion - Sour ce Unsp ecif ied MMR 06-1 3 999 Hist H201 No H201 6-19 oric 97 al Info rmat ion - Sour ce Unsp ecif ied Hep 03-1 8 999 Hist H201 No H201 B, 2-19 oric ped/ 97 al adol Info rmat ion - Sour ce Unsp ecif ied DTP- 09-1 22 999 Hist H201 No H201 Hib 8-19 oric 96 al Info rmat ion - Sour ce Unsp ecif ied DTP- 07-1 22 999 Hist H201 No H201 Hib 7-19 oric 96 al Info rmat ion - Sour ce Unsp ecif ied Rios 07-1 2 999 Hist H201 No H201 o-OP 7-19 oric V 96 al Info rmat ion - Sour ce Unsp ecif ied DTP- 05-1 22 999 Hist H201 No H201 Hib 5-19 oric 96 al Info rmat ion - Sour ce Unsp ecif ied Rios 05-1 Intr 2 999 Hist H201 No H201 o-OP 5-19 amus oric V 96 cula al r Info rmat ion - Sour ce Unsp ecif ied Hep 05-1 45 999 Hist H201 No H201 B, 5-19 oric UF 96 al Info rmat ion - Sour ce Unsp ecif ied
--- OUTSIDE RECORDS SUMMARY | 2017-01-15 02:14 | External Medical Summary Rpt | CCD ---
Author Author , MARIA D Pham MARIA D Address Unknown Phone [email or web address] Immunization Name Date Rout CVX Reac Dose [...]
[2017-01-15] MEDS ORDERED: AMOXICOT500 MG PO ×2 (02:31→03:05)
[2017-01-15 03:16] VITALS: BP 154/79
== END 2017-01-15 03:16 | disposition home or self-care (01) ==
LOC: ER 01:10
DX: J06.9 Acute upper respiratory infection, unspecified (principal); H92.03 Otalgia, bilateral; J45.909 Unspecified asthma, uncomplicated